=== PATIENT | female | born 1945 ===

== ENCOUNTER 2024-03-09 12:00 | Inpatient (IN) | payer OTHER ==
[~2024-03-09] VITALS: Ht 162.6 cm; Wt 68.0 kg
[2024-03-09] MEDS ORDERED: LABETALOL HCL100 MG PO (13:49)
[2024-03-09] MEDS ORDERED: CHILDREN'S ASPI81 MG PO (13:49)
[2024-03-09] MEDS ORDERED: SYNTHROID75 MCG PO (13:49)
[2024-03-09] MEDS ORDERED: PEPCID40 MG PO (13:50)
[2024-03-09] MEDS ORDERED: PROTONIX40 MG PO (13:50)
[2024-03-09] MEDS ORDERED: ETODOLAC300 MG PO (13:50)
[2024-03-09] MEDS ORDERED: VISTARIL25 MG PO (13:50)
[2024-03-09 13:51] VITALS: BP 170/84
[2024-03-15] MEDS ORDERED: METHYLPREDNISOLONE ACETATE 80 MG/ML VIAL IJ ONE (09:45)
[2024-03-15] MEDS ORDERED: CEFAZOLIN SODIUM 1,000 MG VIAL IV ONE (09:45)
[2024-03-15] MEDS ORDERED: ISOPROPYL ALCOHOL 30 ML OUNCE TOP ONE (09:45)
[2024-03-15] MEDS ORDERED: VANCOMYCIN HCL 1,000 MG VIAL IR ONE ×2 (09:45)
[2024-03-15] MEDS ORDERED: HEMOSTATIC MATRIX WITH THROMBIN KIT TOP ONE (09:45)
[2024-03-15] MEDS ORDERED: METHYLPREDNISOLONE SOD SUCC 125 MG VIAL IV ONE ×2 (09:45)
[2024-03-15] MEDS ORDERED: VANCOMYCIN HCL 1,000 MG VIAL IV ONE (10:30)
[2024-03-15] MEDS ORDERED: PROMETHAZINE HCL 50 MG/ML AMPUL IM PRN (10:45)
[2024-03-15] MEDS ORDERED: ENALAPRILAT DIHYDRATE 1.25 MG/ML VIAL IV PRN (10:45)
[2024-03-15] MEDS ORDERED: MEPERIDINE HCL/PF 50 MG/ML VIAL IM PRN (10:45)
[2024-03-15] MEDS ORDERED: 0.9 % SODIUM CHLORIDE 1,000 ML IV SCH (10:45)
[2024-03-15] MEDS ORDERED: MEDROLPACK PO (10:46)
[2024-03-15] MEDS ORDERED: PERCOCET 5-3251 EACH PO (10:46)
[2024-03-15] MEDS ORDERED: ZOFRAN8 MG PO (10:47)
[2024-03-15] MEDS ORDERED: COLACE100 MG PO (10:47)
[2024-03-15] MEDS ORDERED: MEPERIDINE HCL 25 MG/ML AMPUL IV ONE (11:50)
[2024-03-15] MEDS ORDERED: DOCUSATE SODIUM 100MG CAP PO SCH (13:00)
[2024-03-15] MEDS ORDERED: CEFAZOLIN SODIUM 1,000 MG in 0.9 % SODIUM CHLORIDE 50 ML IV SCH (17:00)
[2024-03-15] MEDS ORDERED: LABETALOL HCL 100 MG TABLET PO SCH ×2 (17:00→21:00)
[2024-03-15] MEDS ORDERED: ALBUTEROL SULFATE 3 ML/2.5 MG AMPUL.NEB IH SCH (17:00)
[2024-03-15] MEDS ORDERED: FAMOtidine 20 MG TABLET PO SCH (17:00)
[2024-03-15] MEDS ORDERED: METHYLPREDNISOLONE SOD SUCC 125 MG VIAL IV SCH (17:00)
[2024-03-15 18:38] VITALS: O2SAT 95
[2024-03-15] MEDS ORDERED: VANCOMYCIN HCL 1,000 MG VIAL IV SCH (21:00)
[2024-03-15 21:07] VITALS: BP 134/77; O2SAT 98
[2024-03-16] MEDS ORDERED: SODIUM CHLORIDE 0.45 % 1,000 ML IV SCH
[2024-03-16 01:09] VITALS: BP 122/68; O2SAT 96
[2024-03-16] MEDS ORDERED: LEVOTHYROXINE SODIUM 75 MCG TABLET PO SCH (06:00)
[2024-03-16] MEDS ORDERED: OxyCODONE HCL/APAP UD (PERCOCET) PO PRN (06:01)
[2024-03-16 06:22] VITALS: O2SAT 90
[2024-03-16] MEDS ORDERED: TAMSULOSIN HCL 0.4 MG CAP PO SCH (09:00)
[2024-03-16 09:50] VITALS: BP 179/86; O2SAT 96
== END 2024-03-16 14:38 | disposition home or self-care (01) | DRG 473 ==
LOC: O/R 03-15 06:59 → SURH 03-15 10:15 → SURG 03-15 17:22
PROVIDERS: ADMIT Orthopaedic Surgery Orthopaedic Surgery of the Spine; ATTEND Orthopaedic Surgery Orthopaedic Surgery of the Spine
PROC: 0RT30ZZ Resection of Cervical Vertebral Disc, Open Approach (ICD-10-PCS; 2024-03-15)
PROC: 07DS0ZZ Extraction of Vertebral Bone Marrow, Open Approach (ICD-10-PCS; 2024-03-15)
PROC: 4A1104G Monitoring of Peripheral Nervous Electrical Activity, Intraoperative, Open Approach (ICD-10-PCS; 2024-03-15)
PROC: 0RG20A0 Fusion of 2 or more Cervical Vertebral Joints with Interbody Fusion Device, Anterior Approach, Anterior Column, Open Approach (ICD-10-PCS; principal; 2024-03-15 10:15)
DX: M50.021 Cervical disc disorder at C4-C5 level with myelopathy (principal); M50.022 Cervical disc disorder at C5-C6 level with myelopathy; M50.023 Cervical disc disorder at C6-C7 level with myelopathy; M48.02 Spinal stenosis, cervical region; I10 Essential (primary) hypertension; E03.9 Hypothyroidism, unspecified